=== PATIENT | male | born 1970 | race Caucasian/White ===

== ENCOUNTER 2017-06-28 17:19 | Emergency (ER) | payer BC ==
[2017-06-28 17:30] VITALS: BP 171/100
--- NOTE | 2017-06-28 18:28 | ER Document Report ---
ED Extremity Problem, Lower - General Chief Complaint: Knee Pain Stated Complaint: LEFT KNEE PAIN Time Seen by Provider: 06/28/17 17:42 Mode of Arrival: Wheelchair Information source: Patient Notes: 46-year-old male presents to ED for left knee pain since yesterday. He states he was playing with his dog and he twisted his knee in the yard. He states that with pain right away and then it eased up. Then he got up this morning and went to work. 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 He states it is now very painful to walk. States he has had one arthroscopic and one open knee surgery to the left knee and open surgery to the right knee for gout. He has also had vein stripping. TRAVEL OUTSIDE OF THE [place] IN LAST 30 DAYS: No - HPI Patient complains to provider of: Injury, Pain, Swelling Location: Knee - Left Occurred: Yesterday Where: Home, Outdoors Onset/Duration: Intermittent Quality of pain: Sharp, Throbbing Severity: Moderate Pain Level: 4 Context: Twisted Recent injury: Yes Associated symptoms: Painful ambulation Exacerbated by: Hanging down, Movement, Walking Relieved by: Elevation, Ice, Rest - Related Data Allergies/Adverse Reactions: No Known Allergies Allergy (Unverified 06/28/17 17:27) Past Medical History - General Information source: Patient - Social History Smoking Status: Current Every Day Smoker Cigarette use (# per day): Yes - One half pack a day Chew tobacco use (# tins/day): No Smoking Education Provided: Yes - Less than 2 minutes Frequency of alcohol use: None Drug Abuse: None 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 [employer] Lives with: Alone Family History: Arthritis, CAD, CVA, DM, Hyperlipidemia, Hypertension Patient has suicidal ideation: No Patient has homicidal ideation: No - Past Medical History Cardiac Medical History: Reports: Hx Hypertension Pulmonary Medical History: Reports: None EENT Medical History: Reports: None Neurological Medical History: Reports: Other - TBI with, 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 Endocrine Medical History: Reports: None Renal/ Medical History: Reports: Hx End Stage Renal Disease Malignancy Medical History: Reports None GI Medical History: Reports: None Musculoskeltal Medical History: Reports Hx Arthritis, Reports Hx Gout, Reports Hx Musculoskeletal Trauma Skin Medical History: Reports None Psychiatric Medical History: Reports: None Traumatic Medical History: Reports: Hx Fractures - Left arm and fingers, Hx Traumatic Brain Injury Infectious Medical History: Reports: None Past Surgical History: Reports: Hx Oral Surgery - Pain stripping and 1 pain removed wisdom teeth, Hx Orthopedic Surgery - Knee surgeries to left and right knee, Hx Vascular Surgery Review of Systems - Review of Systems Constitutional: No symptoms reported EENT: No symptoms reported Cardiovascular: No symptoms reported Respiratory: No symptoms reported Gastrointestinal: No symptoms reported Genitourinary: No symptoms reported Male Genitourinary: No symptoms reported Musculoskeletal: Joint pain - left knee pain and swelling Skin: No symptoms reported Hematologic/Lymphatic: No symptoms reported Neurological/Psychological: No symptoms reported -: Yes All other systems reviewed and negative Physical Exam - Vital signs Vitals: Temp Pulse Resp BP Pulse Ox 98.6 F 99 18 171/100 H 97 06/28/17 17:27 06/28/17 17:27 06/28/17 17:27 06/28/17 17:27 06/28/17 17:27 Interpretation: Normal - General General appearance: Appears well, Alert - HEENT Head: Normocephalic, Atraumatic Eyes: Normal Pupils: PERRL - Respiratory Respiratory status: No respiratory distress Chest status: Nontender Breath sounds: Normal Chest palpation: Normal - Cardiovascular Rhythm: Regular Heart sounds: Normal auscultation Murmur: No - Abdominal Inspection: Normal Distension: No distension Bowel sounds: Normal Tenderness: Nontender Organomegaly: No organomegaly - Back Back: Normal, Nontender - Extremities General upper extremity: Normal inspection, Nontender, Normal color, Normal ROM , Normal temperature General lower extremity: Normal color, Normal temperature. No: Jakub's sign Knee: Tender, Joint effusion, Pain with ROM, Patellar tendon intact, Tender joint line, Other - painfull ambulation increased swelling to the lateral aspect of the knee. No: Abrasion, Deformity, Dislocation, Drawer's test instability, Ecchymosis, Instability, Laceration, Laxity with valgus stress, Laxity with varus stress, Popliteal fossa tender - Neurological Neuro grossly intact: Yes Cognition: Normal Orientation: AAOx4 [place] Coma Scale Eye Opening: Spontaneous [place] Coma Scale Verbal: Oriented [place] Coma Scale Motor: Obeys Commands [place] Coma Scale Total: 15 Speech: Normal Motor strength normal: LUE, RUE, LLE, RLE Sensory: Normal - Psychological Associated symptoms: Normal affect, Normal mood - Skin Skin Temperature: Warm Skin Moisture: Dry Skin Color: Normal Course - Re-evaluation Re-evalutation: 06/28/17 19:[address] Lakhani for the x-ray results. Patient was examined by Dr. Lakhani. He recommended knee immobilizer pain medication prednisone crutches and patient to follow-up with his orthopedic surgeon. He states that MRI did not need to be done tonight but it does probably need to be done as an outpatient. - Vital Signs Vital signs: Temp Pulse Resp BP Pulse Ox 98.6 F 99 18 171/100 H 97 06/28/17 17:27 06/28/17 17:27 06/28/17 17:27 06/28/17 17:27 06/28/17 17:27 - Diagnostic Test Radiology reviewed: Image reviewed, Reports reviewed Procedures - Immobilization Left Knee Immobilizer type: Crutches, Knee immobilizer Performed by: Provider Post-Proc Neuro Vasc Exam: Normal Alignment checked and good: Yes Discharge - Discharge Clinical Impression: Left knee injury Qualifiers: Encounter type: initial encounter Qualified Code(s): S89.92XA - Unspecified injury of left lower leg, initial encounter Condition: Stable Disposition: HOME, SELF-CARE Additional Instructions: SUSPECTED INTERNAL KNEE INJURY: The examiner of your injured knee suspects an internal injury to the cartilage or internal ligaments. This must be further investigated by an mailing specialist. The knee should be protected, ice packed, and elevated while awaiting your follow-up exam by the orthopedist. If there is severe swelling, severe pain, or any new symptoms while awaiting your exam, you should call the orthopedist. (If he/she is unavailable, call us or return for re-examination.) KNEE IMMOBILIZING SPLINT: The knee immobilizing splint will protect the injury while healing begins. This type of splint does not allow the knee to bend at all. No running or sports will be possible. If the splint allows painfree walking, it's giving adequate protection. If there is still significant pain, crutches may be needed as well. Don't do anything that hurts. Adjusted the splint, if necessary. The stiffeners on the sides are attached with Velcro, so they can be easily moved to adjust for thigh and calf size. If you need help with these adjustments, come back. You will lose muscle strength in the thigh while using this splint. The doctor will advise you if it's safe to do isometric knee exercises while you use it. USE OF CRUTCHES: The doctor has recommended that you not bear weight at this time. You will need to use crutches. Adjust the crutches so the tops come to about two inches under the armpit while you are standing upright. Use your hands -- not your armpits -- to support your weight. To get into a chair, support yourself with one crutch on the injured side. Hold the chair with the other hand, then lower yourself while putting all your weight on the good leg. Going up stairs is `good leg up, step up, then bring up crutches and bad leg.' Down stairs is `bad leg and crutches down, then bring good leg down.' If you develop numbness or swelling in an arm or hand, you are using the crutches incorrectly. Return if you are having any problems with the crutches. ICE & ELEVATION: Apply ice packs frequently against the painful area. Many different schedules are recommended, such as "20 minutes on, 20 minutes off" or "one hour ice, two hours rest." If you need to work, you may need to go longer between ice treatments. You should plan to have the area ice packed AT LEAST one- fourth of the time. The ice should be applied over the wrap, tape, or splint, or over a layer of cloth -- not directly against the skin. Some ice bags have a built-in cloth and can be put directly on the skin. Your injured part should be elevated as much as possible over the next 48 hours. Try to keep the injury above the level of the heart. Avoid use of the injured area. Elevation and rest will decrease the swelling. STEROID MEDICATION: You have been given a medicine of the cortisone/steroid class. This medication is used to control inflammation or allergy. It is usually only given for a short period of time, until the acute process subsides. There are usually no side effects from short-term use of cortisone-like medications. Some persons feel an increased sense of well-being and are not sleepy at bedtime. Long-term use of cortisone medications is best avoided, unless required for a severe condition. If your condition does not remit, or relapses after the course of corticosteroid medication, you should consult your physician. Oral Narcotic Medication You have been given a prescription for pain control. This medication is a narcotic. It's best taken with food, as nausea can result if taken on an empty stomach. Don't operate machinery or drive within six hours of taking this medication. Do not combine this medicine with alcohol, or with any medication which can cause sedation (such as cold tablets or sleeping pills) unless you get permission from the physician. Narcotics tend to cause constipation. If possible, drink plenty of fluids and eat a diet high in fiber and fruits. FOLLOW-UP CARE: If you have been referred to a physician for follow-up care, call the physician s office for an appointment as you were instructed or within the next two days. If you experience worsening or a significant change in your symptoms, notify the physician immediately or return to the Emergency Department at any time for re-evaluation. Prescriptions: Prednisone [Sterapred Ds] 1 pkg PO ASDIR PRN 12 Days tab.ds.pk PRN Reason: Forms: Elevated Blood Pressure, Smoking Cessation Education, Return to Work Referrals: ROBERT FLORENTINO MD [ACTIVE STAFF] - Follow up as needed
--- NOTE | 2017-06-28 18:31 | RADIOLOGY REPORT (SQ) ---
EXAM DESCRIPTION: KNEE LEFT 4 VIEW COMPLETED DATE/TIME: 06/28/2017 6:12 pm REASON FOR STUDY: pain injury COMPARISON: None. NUMBER OF VIEWS: Four views. TECHNIQUE: AP, lateral, and both oblique radiographic images acquired of the left knee. LIMITATIONS: None. FINDINGS: MINERALIZATION: Osteopenia. BONES: No acute fracture or dislocation. No worrisome bone lesions. JOINT: There is narrowing of the lateral joint compartment with subchondral sclerosis. No marginal o steophytes are present. There is a significant joint effusion. SOFT TISSUES: No soft tissue swelling. No radio-opaque foreign body. OTHER: No other significant finding. IMPRESSION: Degenerative joint changes in the lateral compartment. There is a significant effusion. If there is concern for internal derangement, consider MRI. TECHNICAL DOCUMENTATION: JOB ID: [id number]- All Rights Reserved
[2017-06-28] MEDS ORDERED: HYDROCODONE/ACETAMINOPHEN 5-325 MG 6 TAB/DSPK PO PRN (19:27)
[2017-06-28] MEDS ORDERED: PREDNISONE 20 MG TABLET PO ONE (19:27)
== END 2017-06-28 19:40 | disposition home or self-care (01) ==
LOC: ER 17:19
DX: S89.92XA Unspecified injury of left lower leg, initial encounter (principal); M25.562 Pain in left knee; M25.462 Effusion, left knee; X50.1XXA Overexertion from prolonged static or awkward postures, initial encounter; Y93.K9 Activity, other involving animal care; Y92.007 Garden or yard of unspecified non-institutional (private) residence as the place of occurrence of the external cause; I10 Essential (primary) hypertension; F17.210 Nicotine dependence, cigarettes, uncomplicated; Z71.6 Tobacco abuse counseling; Z98.890 Other specified postprocedural states
CPT/HCPCS: 99283; 73562; L1830; J7512

== ENCOUNTER → 2019-02-05 | Outpatient (CLI) | payer OTHER ==
--- NOTE | 2019-02-05 16:21 | RADIOLOGY REPORT (SQ) ---
EXAM DESCRIPTION: U/S RETROPERITON (RENAL/AORTA) COMPLETED DATE/TIME: 02/05/2019 4:00 pm REASON FOR STUDY: N18.5 CHRONIC KIDNEY DISEASE, STAGE 5 N18.5 CHRONIC KIDNEY DISEASE, STAGE 5 COMPARISON: None. TECHNIQUE: Dynamic and static grayscale images acquired of the kidneys and bladder and recorded on P ACS. Additional selected color Doppler and spectral images recorded. LIMITATIONS: None. FINDINGS: RIGHT KIDNEY: The right kidney measures 9.7 cm in length. There is increased echogenici ty. No solid or suspicious masses. No hydronephrosis. No calcifications. LEFT KIDNEY: The left kidney measures 9.5 cm in length. The kidney is echogenic. No solid or cristina picious masses. No hydronephrosis. No calcifications. There is a 3.0 x 2.6 x 2.2 cm cyst. BLADDER: No masses. OTHER FINDINGS: No other significant finding. IMPRESSION: Echogenic kidneys consistent with medical renal disease. No hydronephrosis. TECHNICAL DOCUMENTATION: JOB ID: [id number] [employer]- All Rights Reserved Reading location - IP/workstation name: [email or web address]
== END ==
LOC: RAD 15:19
PROVIDERS: ATTEND Internal Medicine Nephrology
DX: N18.5 Chronic kidney disease, stage 5 (principal)
CPT/HCPCS: 76770

== ENCOUNTER → 2019-02-07 | Outpatient (CLI) | payer OTHER ==
[2019-02-07 10:56] LABS: APPEARANCE,URINE CLEAR; BILIRUBIN,URINE NEGATIVE (NEGATIVE); COLOR,URINE STRAW; GLUCOSE, URINE NEGATIVE (NEGATIVE); KETONES,URINE NEGATIVE (NEGATIVE); LEUKOCYTE ESTERASE,URINE NEGATIVE (NEGATIVE); NITRITE,URINE NEGATIVE (NEGATIVE); PROTEIN,URINE 30 mg/dL (NEGATIVE); UROBILINOGEN,URINE NEGATIVE mg/dL (<2.0)
[2019-02-07 11:08] LABS: ALBUMIN 3.6 g/dL (3.5-5.0); ANION GAP 13 (5-19); BLOOD UREA NITROGEN 81 mg/dL (7-20); CALCIUM 7.9 mg/dL (8.4-10.2); CARBON DIOXIDE 22 mmol/L (22-30); CHLORIDE 105 mmol/L (98-107); GLUCOSE 109 mg/dL (75-110); IRON(TIBC) 33.5 ug/dL (49-181); PHOSPHORUS 6.4 mg/dL (2.5-4.5); POTASSIUM 4.7 mmol/L (3.6-5.0); SODIUM 139.9 mmol/L (137-145); URIC ACID 9.3 mg/dL (3.5-8.5)
[2019-02-07 11:53] LABS: UR PRO/CREAT RATIO RESULT 0.7 mg/mg (0.0-0.2); URINE CREATININE 71.7 mg/dL (22-328); URINE PROTEIN 51.6 mg/dL (<12)
[2019-02-07 12:15] LABS: 24 HOUR URINE PROTEIN RESULT 916 mg/day (42-225)
[2019-02-07 12:20] LABS: URINE CREATININE 66.9 mg/dL (22-328)
[2019-02-07 12:21] LABS: CREATININE 5.82 mg/dL (0.52-1.25)
== END ==
LOC: OD 10:04
PROVIDERS: ATTEND Internal Medicine Nephrology
DX: I12.9 Hypertensive chronic kidney disease with stage 1 through stage 4 chronic kidney disease, or unspecified chronic kidney disease (principal); N18.3 Chronic kidney disease, stage 3 (moderate); E55.9 Vitamin D deficiency, unspecified
CPT/HCPCS: 36415; 80069; 81001; 82306; 82570; 82575; 82728; 83540; 83550; 83970; 84156; 84550

== ENCOUNTER 2019-02-11 09:10 | Emergency (ER) | payer OTHER ==
[2019-02-11 09:18] VITALS: BP 158/92
--- NOTE | 2019-02-11 10:04 | ER Document Report ---
ED Medical Screen (RME) - General Chief Complaint: Flank Pain Stated Complaint: FLANK PAIN Time Seen by Provider: 02/11/19 09:56 Primary Care Provider: NICK VAUGHN MD [Primary Care Provider] - Follow up as needed Mode of Arrival: Ambulatory Information source: Patient TRAVEL OUTSIDE OF THE [place] IN LAST 30 DAYS: No - HPI Patient complains to provider of: FLANK PAIN, NOT FEELING WELL Notes: 02/11/19 10:02 Patient here with complaints of not feeling well. The patient has a history of chronic kidney disease. Creatinine runs in the fives. He sees Dr. Vaughn. He is not currently on dialysis at this time. He still makes urine. States that this morning he woke up just not feeling well. He states that he feels nauseous, fatigued, somewhat confused, mildly short of breath and has been having some right flank pain. States this is not normal for him. No fever. No chest pain. Exam Nontoxic-appearing, no distress. Lungs clear and equal throughout. Heart sounds normal. Mild right-sided CVA tenderness to percussion. Plan CBC, CMP, troponin, urinalysis, EKG, chest x-ray, CT abdomen pelvis An initial examination was made on the patient as part of the triage process, and it was determined a more comprehensive evaluation was necessary. Initial labs were ordered and patient was transferred to another provider in the ED who assumed care and finished evaluation and plan. - Related Data Allergies/Adverse Reactions: No Known Allergies Allergy (Verified 02/11/19 09:10) Past Medical History - Past Medical History Cardiac Medical History: Reports: Hx Hypertension Renal/ Medical History: Reports: Hx End Stage Renal Disease. Denies: Hx Peritoneal Dialysis Musculoskeltal Medical History: Reports Hx Arthritis, Reports Hx Gout, Reports Hx Musculoskeletal Trauma Traumatic Medical History: Reports: Hx Fractures - Left arm and fingers, Hx Traumatic Brain Injury Past Surgical History: Reports: Hx Oral Surgery - Pain stripping and 1 pain removed wisdom teeth, Hx Orthopedic Surgery - Knee surgeries to left and right knee, Hx Vascular Surgery Physical Exam - Vital signs Vitals: Temp Pulse Resp BP Pulse Ox 98.1 F 95 16 158/92 H 96 02/11/19 09:16 02/11/19 09:16 02/11/19 09:16 02/11/19 09:16 02/11/19 09:16 Course - Vital Signs Vital signs: Temp Pulse Resp BP Pulse Ox 98.1 F 95 16 158/92 H 96 02/11/19 09:16 02/11/19 09:16 02/11/19 09:16 02/11/19 09:16 02/11/19 09:16 Doctor's Discharge - Discharge Referrals: NICK VAUGHN MD [Primary Care Provider] - Follow up as needed
[2019-02-11 10:34] LABS: ABSOLUTE BASOPHILS # (AUTO) 0.1 10^3/uL (0.0-0.2); ABSOLUTE EOSINOPHILS # (AUTO) 0.2 10^3/uL (0.0-0.6); ABSOLUTE LYMPHOCYTES (AUTO) 1.3 10^3/uL (0.5-4.7); ABSOLUTE MONOCYTES (AUTO) 0.7 10^3/uL (0.1-1.4); ABSOLUTE NEUT (AUTO) 7.4 10^3/uL (1.7-8.2); BASOPHILS % (AUTO) 0.9 % (0-2); EOSINOPHILS % (AUTO) 1.6 % (0-6); HEMATOCRIT 32.2 % (37.9-51.0); HEMOGLOBIN 10.9 g/dL (13.5-17.0); LYMPHOCYTES % (AUTO) 13.5 % (13-45); MEAN CORPUSCULAR HEMOGLOBIN 30.6 pg (27.0-33.4); MEAN CORPUSCULAR VOLUME 90 fl (80-97); MONOCYTES % (AUTO) 7.1 % (3-13); PLATELET COUNT 292 10^3/uL (150-450); RED BLOOD COUNT 3.58 10^6/uL (4.35-5.55); RED CELL DISTRIBUTION WIDTH 14.1 % (11.5-14.0); SEGMENTED NEUTROPHILS % (AUTO) 76.9 % (42-78); TOTAL CELLS COUNTED % (AUTO) 100 %; WHITE BLOOD COUNT 9.7 10^3/uL (4.0-10.5)
[2019-02-11 10:36] LABS: APPEARANCE,URINE SLIGHTLY-CLOUDY; BILIRUBIN,URINE NEGATIVE (NEGATIVE); COLOR,URINE YELLOW; GLUCOSE, URINE NEGATIVE (NEGATIVE); KETONES,URINE NEGATIVE (NEGATIVE); LEUKOCYTE ESTERASE,URINE NEGATIVE (NEGATIVE); NITRITE,URINE NEGATIVE (NEGATIVE); PROTEIN,URINE 30 mg/dL (NEGATIVE); UROBILINOGEN,URINE NEGATIVE mg/dL (<2.0)
[2019-02-11 11:01] LABS: ALANINE AMINOTRANSFERASE 22 U/L (21-72); ALBUMIN 4.2 g/dL (3.5-5.0); ALKALINE PHOSPHATASE 83 U/L (38-126); ANION GAP 16 (5-19); ASPARTATE AMINO TRANSFERASE 15 U/L (17-59); BILIRUBIN,DIRECT 0.4 mg/dL (0.0-0.4); BILIRUBIN,TOTAL 0.4 mg/dL (0.2-1.3); BLOOD UREA NITROGEN 88 mg/dL (7-20); CALCIUM 8.6 mg/dL (8.4-10.2); CARBON DIOXIDE 19 mmol/L (22-30); CHLORIDE 106 mmol/L (98-107); GLUCOSE 94 mg/dL (75-110); POTASSIUM 5.3 mmol/L (3.6-5.0); SODIUM 141.2 mmol/L (137-145)
--- NOTE | 2019-02-11 11:19 | RADIOLOGY REPORT (SQ) ---
EXAM DESCRIPTION: CHEST 2 VIEWS COMPLETED DATE/TIME: 02/11/2019 11:09 am REASON FOR STUDY: SOB COMPARISON: None. EXAM PARAMETERS: NUMBER OF VIEWS: two views TECHNIQUE: Digital Frontal and Lateral radiographic views of the chest acquired. RADIATION DOSE: NA LIMITATIONS: none FINDINGS: LUNGS AND PLEURA: No opacities, masses or pneumothorax. No pleural effusion. MEDIASTINUM AND HILAR STRUCTURES: No masses or contour abnormalities. HEART AND VASCULAR STRUCTURES: Heart normal size. No evidence for failure. BONES: No acute findings. HARDWARE: None in the chest. OTHER: No other significant finding. IMPRESSION: No acute abnormality of the lungs. TECHNICAL DOCUMENTATION: JOB ID: [id number] [employer]- All Rights Reserved Reading location - IP/workstation name: [email or web address]
--- NOTE | 2019-02-11 11:22 | RADIOLOGY REPORT (SQ) ---
EXAM DESCRIPTION: CT ABD/PELVIS NO ORAL OR IV COMPLETED DATE/TIME: 02/11/2019 11:02 am REASON FOR STUDY: RIGHT FLANK PAIN COMPARISON: None. TECHNIQUE: CT scan of the abdomen and pelvis performed without intravenous or oral contrast. Images reviewed with lung, soft tissue, and bone windows. Reconstructed coronal and sagittal MPR images revi ewed. All images stored on PACS. All CT scanners at this facility use dose modulation, iterative reconstruction, and/or weight based d osing when appropriate to reduce radiation dose to as low as reasonably achievable (ALARA). [facility]: Dose Right [facility]: CareDose [facility]: Dose Right [facility]: Teradose 4D [facility]: Smart Anywhere to Go RADIATION DOSE: CT Rad equipment meets quality standard of care and radiation dose reduction techniq ues were employed. CTDIvol: 11.6 mGy. DLP: 642 mGy-cm.mGy. LIMITATIONS: None. FINDINGS: LOWER CHEST: No significant findings. No nodules or infiltrates. NON-CONTRASTED LIVER, SPLEEN, ADRENALS: 1 cm left adrenal adenoma. Liver unremarkable. Small splenu le PANCREAS: No masses. No peripancreatic inflammatory changes. GALLBLADDER: No identified stones by CT criteria. No inflammatory changes to suggest cholecystitis. RIGHT KIDNEY AND URETER: No suspicious masses. Assessment limited by lack of IV contrast. No signif icant calcifications. No hydronephrosis or hydroureter. LEFT KIDNEY AND URETER: No suspicious masses. Assessment limited by lack of IV contrast. No signifi cant calcifications. No hydronephrosis or hydroureter. Benign cystic change AORTA AND RETROPERITONEUM: No aneurysm. No retroperitoneal masses or adenopathy. BOWEL AND PERITONEAL CAVITY: No obvious masses or inflammatory changes. No free fluid. Large quantit y fecal material rectosigmoid. APPENDIX: Normal. PELVIS, BLADDER, AND ABDOMINAL WALL:No abnormal masses. No free fluid. Bladder normal. BONES: Scoliosis with associated multilevel disc degeneration and hypertrophic spurring. OTHER: No other significant finding. IMPRESSION: No abnormality to explain the history right flank pain. Incidental findings of small le ft adrenal adenoma. Benign cystic change left kidney. Large quantity fecal material rectosigmoid. Scoliosis with associated multilevel disc degeneration and hypertrophic spurring. COMMENT: Quality ID # [id number]: Final reports with documentation of one or more dose reduction techniques (e.g., Automated exposure control, adjustment of the mA and/or kV according to patient size, use of iterative reconstruction technique) TECHNICAL DOCUMENTATION: JOB ID: [id number] [employer]- All Rights Reserved Reading location - IP/workstation name: [email or web address]
--- NOTE | 2019-02-11 12:36 | EKG REPORT ---
SEVERITY:- NORMAL ECG - SINUS RHYTHM : Confirmed by: Matty Schwarz MD 11-Feb-2019 12:35:10
[2019-02-11] MEDS ORDERED: ASPIRIN 81 MG TABLET, CHEWABLE PO ONE (13:43)
[2019-02-11] MEDS ORDERED: CALCIUM GLUCONATE 1000 MG/10 ML INJ IV ONE (14:30)
--- NOTE | 2019-02-11 14:33 | ER Document Report ---
ED General - General Chief Complaint: Flank Pain Stated Complaint: FLANK PAIN Time Seen by Provider: 02/11/19 09:56 Primary Care Provider: NICK VAUGHN MD [Primary Care Provider] - Follow up as needed Mode of Arrival: Ambulatory TRAVEL OUTSIDE OF THE [place] IN LAST 30 DAYS: No - HPI Notes: 48-year-old male age by chronic kidney disease presents to the ED for evaluation of right sided flank pain that comes intermittently, reports some dizziness, sl ight confusion that started approximately 5:00am. Patient was just told by Dr. Vaughn yesterday that he is stage V renal disease and will need dialysis within the next week or the next couple months. Patient states his creatinines usually run in the fives, his father did also have chronic renal disease and required a renal transplant. Denies any chest pain shortness of breath nausea vomiting or diarrhea, denies any dysuria. Denies any illicit drug use. Denies fevers, chills, chest pain,palpitations, shortness of breath, dyspnea, nausea, vomiting, diarrhea, abdominal pain, hematuria,blurred vision, double vision, loss of vision, speech changes, LH, dizziness, syncope, headaches, wheezing, ST, URI, neck pain, weakness, bowel or bladder dysfunction, saddle anesthesia, numbness or tingling in bilateral upper or lower extremities equally, muscle paralysis, weakness in bilateral upper or lower extremities equally or rash. - Related Data Allergies/Adverse Reactions: No Known Allergies Allergy (Verified 02/11/19 09:10) Past Medical History - General Information source: Patient, Relative - Social History Smoking Status: Current Every Day Smoker Chew tobacco use (# tins/day): No Frequency of alcohol use: Rare Drug Abuse: None Family History: Arthritis, CAD, CVA, DM, Hyperlipidemia, Hypertension Patient has suicidal ideation: No Patient has homicidal ideation: No - Past Medical History Cardiac Medical History: Reports: Hx Hypertension Renal/ Medical History: Reports: Hx End Stage Renal Disease. Denies: Hx P eritoneal Dialysis Musculoskeletal Medical History: Reports Hx Arthritis, Reports Hx Gout, Reports Hx Musculoskeletal Trauma Traumatic Medical History: Reports: Hx Fractures - Left arm and fingers, Hx Traumatic Brain Injury Past Surgical History: Reports: Hx Oral Surgery - Pain stripping and 1 pain removed wisdom teeth, Hx Orthopedic Surgery - Knee surgeries to left and right knee, Hx Vascular Surgery Review of Systems - Review of Systems Constitutional: See HPI EENT: No symptoms reported Cardiovascular: No symptoms reported Respiratory: No symptoms reported Gastrointestinal: See HPI Genitourinary: No symptoms reported Male Genitourinary: No symptoms reported Musculoskeletal: No symptoms reported Skin: No symptoms reported Hematologic/Lymphatic: No symptoms reported Neurological/Psychological: No symptoms reported Physical Exam - Vital signs Vitals: Temp Pulse Resp BP Pulse Ox 98.1 F 95 16 158/92 H 96 02/11/19 09:16 02/11/19 09:16 02/11/19 09:16 02/11/19 09:16 02/11/19 09:16 - Notes Notes: PHYSICAL EXAMINATION: GENERAL: Well-appearing, well-nourished and in no acute distress. HEAD: Atraumatic, normocephalic. EYES: Pupils equal round and reactive to light, extraocular movements intact, sclera anicteric, conjunctiva are normal. ENT: Nares patent, oropharynx clear without exudates. Moist mucous membranes. NECK: Normal range of motion, supple without lymphadenopathy LUNGS: Breath sounds clear to auscultation bilaterally and equal. No wheezes rales or rhonchi. HEART: Regular rate and rhythm without murmurs ABDOMEN: Soft, nontender, nondistended abdomen. No guarding, no rebound. No masses appreciated. Musculoskeletal: Normal range of motion, no pitting or edema. No cyanosis. NEUROLOGICAL: Cranial nerves grossly intact. Normal speech, normal gait. Normal sensory, motor exams PSYCH: Normal mood, normal affect. SKIN: Warm, Dry, normal turgor, no rashes or lesions noted. Course - Re-evaluation Re-evalutation: 1-year-old male afebrile vitals stable for evaluation of right flank pain, CBC with anemia, no leukocytosis, creatinine is 5.66 with BUN 88, potassium is 5.3. Patient was seen by Dr. Vaughn yesterday, patient has had these creatinines for the last couple of years. Previous to being seen by Dr. Vaughn patient was seen in [place] by a direct support worker, Dr. Toussaint, he states his been progressively getting elevated creatinines, family history of chronic renal disease, father had a renal transplant [place] at age 50. Patient recently had a stress echo done approximately 1 week ago, which was negative, patient is seen by Rufina Gallo neck is the primary provider. CT abdomen pelvis without contrast show that patient has large stool on rectosigmoid, left adrenal adenoma, no other acute findings. Chest x-ray was normal, initial troponin was negative. Consulted with Dr. Wills, direct support worker on-call at [phone], consulted regarding pertinent laboratory diagnostic and clinical findings, Dr. Wills to review chart since patient has been seen at that practice as he is a colleague of Dr. Vaughn's, stated that patient does not require any hospitalization due to chronic renal failure, states usually creatinines take 8-9 prior to dialysis being initiated, after reviewing his chart does not feel that patient needs to be admitted for nephrology purposes. Unable to discuss with patient the risks and benefits of leaving AGAINST MEDICAL ADVICE such risk of , permanent or temporary disability or possibly . - Vital Signs Vital signs: Temp Pulse Resp BP Pulse Ox 98.1 F 95 16 158/92 H 96 02/11/19 09:16 02/11/19 09:16 02/11/19 09:16 02/11/19 09:16 02/11/19 09:16 - Laboratory Result Diagrams: 02/11/19 10:20 02/11/19 10:20 Laboratory results interpreted by me: 02/11/19 02/11/19 02/11/19 10:20 10:20 10:20 RBC 3.58 L Hgb 10.9 L Hct 32.2 L RDW 14.1 H Potassium 5.3 H Carbon Dioxide 19 L BUN 88 H Creatinine 5.66 H Est GFR ( Amer) 13 L Est GFR (Non-Af Amer) 11 L AST 15 L Urine Protein 30 H Discharge - Discharge Clinical Impression: Hyperkalemia Condition: Fair Disposition: ELOPED Referrals: NICK VAUGHN MD [Primary Care Provider] - Follow up as needed
--- NOTE | 2019-02-11 14:41 | RADIOLOGY REPORT (SQ) ---
EXAM DESCRIPTION: CT HEAD WITHOUT COMPLETED DATE/TIME: 02/11/2019 2:01 pm REASON FOR STUDY: AMS COMPARISON: None. TECHNIQUE: Axial images acquired through the brain without intravenous contrast. Images reviewed wi th bone, brain and subdural windows. Additional sagittal and coronal reconstructions were generated. Images stored on PACS. All CT scanners at this facility use dose modulation, iterative reconstruction, and/or weight based d osing when appropriate to reduce radiation dose to as low as reasonably achievable (ALARA). [facility]: Dose Right [facility]: CareDose [facility]: Dose Right [facility]: Teradose 4D [facility]: [employer] RADIATION DOSE: 53 mGy. LIMITATIONS: None. FINDINGS: VENTRICLES: Normal size and contour. CEREBRUM: No masses. No hemorrhage. No midline shift. No evidence for acute infarction. Normal gra y/white matter differentiation. No areas of low density in the white matter. CEREBELLUM: No masses. No hemorrhage. No alteration of density. No evidence for acute infarction. EXTRAAXIAL SPACES: No fluid collections. No masses. ORBITS AND GLOBE: No intra- or extraconal masses. Normal contour of globe without masses. CALVARIUM: No fracture. PARANASAL SINUSES: Opacified right maxillary sinus with mucous or serous retention cyst. SOFT TISSUES: No mass or hematoma. OTHER: No other significant finding. IMPRESSION: NORMAL BRAIN CT WITHOUT CONTRAST. EVIDENCE OF ACUTE STROKE: NO. COMMENT: Quality ID # [id number]: Final reports with documentation of one or more dose reduction techniques (e.g., Automated exposure control, adjustment of the mA and/or kV according to patient size, use of iterative reconstruction technique) TECHNICAL DOCUMENTATION: JOB ID: [id number] [employer]- All Rights Reserved Reading location - IP/workstation name: [email or web address]
== END 2019-02-11 14:48 | disposition left against medical advice (07) ==
LOC: ER 09:10
DX: E87.5 Hyperkalemia (principal); R10.9 Unspecified abdominal pain; R42 Dizziness and giddiness; F17.200 Nicotine dependence, unspecified, uncomplicated; I12.0 Hypertensive chronic kidney disease with stage 5 chronic kidney disease or end stage renal disease; N18.6 End stage renal disease
CPT/HCPCS: 36415; 70450; 71046; 74176; 80053; 81001; 84484; 85025; 93005; 93010; 99281

== ENCOUNTER → 2019-03-04 | Outpatient (CLI) | payer OTHER ==
[2019-03-04 16:25] LABS: ABSOLUTE BASOPHILS # (AUTO) 0.1 10^3/uL (0.0-0.2); ABSOLUTE EOSINOPHILS # (AUTO) 0.2 10^3/uL (0.0-0.6); ABSOLUTE LYMPHOCYTES (AUTO) 1.5 10^3/uL (0.5-4.7); ABSOLUTE MONOCYTES (AUTO) 0.7 10^3/uL (0.1-1.4); ABSOLUTE NEUT (AUTO) 7.1 10^3/uL (1.7-8.2); BASOPHILS % (AUTO) 0.7 % (0-2); EOSINOPHILS % (AUTO) 2.2 % (0-6); HEMATOCRIT 29.7 % (37.9-51.0); MEAN CORPUSCULAR HEMOGLOBIN 29.9 pg (27.0-33.4); MEAN CORPUSCULAR HGB CONC 33.5 g/dL (32.0-36.0); MEAN CORPUSCULAR VOLUME 89 fl (80-97); PLATELET COUNT 296 10^3/uL (150-450); RED BLOOD COUNT 3.33 10^6/uL (4.35-5.55); RED CELL DISTRIBUTION WIDTH 14.5 % (11.5-14.0); SEGMENTED NEUTROPHILS % (AUTO) 74.1 % (42-78); TOTAL CELLS COUNTED % (AUTO) 100 %; WHITE BLOOD COUNT 9.6 10^3/uL (4.0-10.5)
[2019-03-04 16:47] LABS: ALBUMIN 4.3 g/dL (3.5-5.0); ANION GAP 16 (5-19); BLOOD UREA NITROGEN 85 mg/dL (7-20); CALCIUM 9.1 mg/dL (8.4-10.2); CARBON DIOXIDE 18 mmol/L (22-30); CHLORIDE 107 mmol/L (98-107); GLUCOSE 80 mg/dL (75-110); IRON(TIBC) 44.4 ug/dL (49-181); PHOSPHORUS 8.3 mg/dL (2.5-4.5); POTASSIUM 5.4 mmol/L (3.6-5.0); SODIUM 140.7 mmol/L (137-145); URIC ACID 7.3 mg/dL (3.5-8.5)
[2019-03-04 16:50] LABS: UR PRO/CREAT RATIO RESULT 0.4 mg/mg (0.0-0.2); URINE CREATININE 124.2 mg/dL (22-328); URINE PROTEIN 44.5 mg/dL (<12)
== END ==
LOC: OD 15:50
PROVIDERS: ATTEND Internal Medicine Nephrology
DX: I12.0 Hypertensive chronic kidney disease with stage 5 chronic kidney disease or end stage renal disease (principal); N18.5 Chronic kidney disease, stage 5; N25.81 Secondary hyperparathyroidism of renal origin; E87.5 Hyperkalemia
CPT/HCPCS: 36415; 80069; 82306; 82570; 82728; 83540; 83550; 83970; 84156; 84550; 85025

== ENCOUNTER → 2019-03-12 | Outpatient (CLI) | payer OTHER ==
[2019-03-12 18:50] LABS: ANION GAP 18 (5-19); BLOOD UREA NITROGEN 76 mg/dL (7-20); CALCIUM 8.8 mg/dL (8.4-10.2); CARBON DIOXIDE 20 mmol/L (22-30); CHLORIDE 106 mmol/L (98-107); GLUCOSE 79 mg/dL (75-110); POTASSIUM 4.8 mmol/L (3.6-5.0); SODIUM 143.7 mmol/L (137-145)
[2019-03-14 07:39] LABS: HEPATITIS C VIRUS AB <0.1 s/co ratio (0.0-0.9); HEPATITS B SURFACE ANTIGEN Negative (Negative)
[2019-03-14 17:36] LABS: HEPATITIS B CORE AB TOT Negative (Negative); HEPATITIS B SURFACE AB QUANT 201.5 mIU/mL (Immunity>9)
== END ==
LOC: OD 16:40
PROVIDERS: ATTEND Internal Medicine Nephrology
DX: Z11.59 Encounter for screening for other viral diseases (principal); N18.5 Chronic kidney disease, stage 5
CPT/HCPCS: 36415; 80048; 86317; 86704; 86803; 86804; 87340

== ENCOUNTER 2019-03-23 07:20 | Day surgery (SDC) | payer OTHER ==
[~2019-03-23 07:20] MED LIST: CEFAZOLIN 1 GM/D5W RTU 1 GM/50 ML RTUPB IV SCH; DEXTROSE 5%-1/2 NORMAL SALINE 1,000 ML IV PRN; DIAZEPAM 5 MG TABLET PO PRN; OXYCODONE-ACETAMINOPHEN 5-325 MG TABLET PO PRN
[2019-03-23] MEDS ORDERED: DIAZEPAM 5 MG TABLET ONE (07:52)
[2019-03-23] MEDS ORDERED: OXYCODONE-ACETAMINOPHEN 5-325 MG TABLET ONE (07:52)
[2019-03-23] MEDS ORDERED: CEFAZOLIN 1 GM/D5W RTU 1 GM/50 ML RTUPB IV ONE (07:52)
[2019-03-23 08:12] LABS: HEMATOCRIT 29.5 % (37.9-51.0); MEAN CORPUSCULAR HEMOGLOBIN 30.6 pg (27.0-33.4); MEAN CORPUSCULAR HGB CONC 33.8 g/dL (32.0-36.0); MEAN CORPUSCULAR VOLUME 90 fl (80-97); PLATELET COUNT 245 10^3/uL (150-450); RED BLOOD COUNT 3.27 10^6/uL (4.35-5.55); RED CELL DISTRIBUTION WIDTH 16.1 % (11.5-14.0); WHITE BLOOD COUNT 6.9 10^3/uL (4.0-10.5)
[2019-03-23 08:24] LABS: ANION GAP 13 (5-19); BLOOD UREA NITROGEN 75 mg/dL (7-20); CALCIUM 8.5 mg/dL (8.4-10.2); CARBON DIOXIDE 19 mmol/L (22-30); CHLORIDE 111 mmol/L (98-107); GLUCOSE 104 mg/dL (75-110); POTASSIUM 4.8 mmol/L (3.6-5.0); SODIUM 143.4 mmol/L (137-145)
--- NOTE | 2019-03-23 08:33 | RADIOLOGY REPORT (SQ) ---
EXAM DESCRIPTION: CHEST SINGLE VIEW COMPLETED DATE/TIME: 03/23/2019 7:53 am REASON FOR STUDY: surgery COMPARISON: 02/11/2019. EXAM PARAMETERS: NUMBER OF VIEWS: One view. TECHNIQUE: Single frontal radiographic view of the chest acquired. RADIATION DOSE: NA LIMITATIONS: None. FINDINGS: LUNGS AND PLEURA: No opacities, masses or pneumothorax. No pleural effusion. MEDIASTINUM AND HILAR STRUCTURES: No masses. Contour normal. HEART AND VASCULAR STRUCTURES: Heart normal in size. Normal vasculature. BONES: No acute findings. HARDWARE: None in the chest. OTHER: No other significant finding. IMPRESSION: NO ACUTE RADIOGRAPHIC FINDING IN THE CHEST. TECHNICAL DOCUMENTATION: JOB ID: [id number] [employer]- All Rights Reserved Reading location - IP/workstation name: [email or web address]
[2019-03-23] MEDS ORDERED: BACITRACIN INJ 50,000 UNIT VIAL ONE (09:46)
[2019-03-23] MEDS ORDERED: LIDOCAINE 0.5% INJ-PF (5 MG/ML) 50 ML SDV ONE (09:46)
[2019-03-23] MEDS ORDERED: FENTANYL CITRATE INJ/PF 100 MCG/2 ML AMPUL ONE (09:54)
[2019-03-23] MEDS ORDERED: MIDAZOLAM 2 MG/2 ML INJ ONE (09:54)
--- NOTE | 2019-03-23 10:45 | Discharge Summary ---
Discharge Summary (SDC) - Discharge Final Diagnosis: #1 end-stage renal disease on hemodialysis Date of Surgery: 03/23/19 Discharge Date: 03/23/19 Condition: Fair Treatment or Instructions: Discharge home [after recovery per ASU criteria]. Diet , [renal],as tolerated, when fully awake advance as tolerated. Activities within moderation encouraged. Follow up in my office by appointment in about [1 week]. Call for appointment. Leave wounds [covered], [keep clean and dry, until office visit in 1 week]. Hold of on school/work [until evaluation in office]. Meds per med rec. May shower [in 48 hrs], [try to keep operated area as dry as possible]. Referrals: BRIT ALLEN PA-C [Primary Care Provider] - Discharge Diet: Other (Comments) - Renal. Respiratory Treatments at Home: Deep Breathing/Coughing Discharge Activity: Activity As Tolerated Report the Following to Your Physician Immediately: Shortness of Breath
--- NOTE | 2019-03-23 10:48 | Operative Report ---
Operative Report DATE OF SURGERY: 03/23/19 PREOPERATIVE DIAGNOSIS: #1 end-stage renal disease on hemodialysis POSTOPERATIVE DIAGNOSIS: #1 end-stage renal disease on hemodialysis OPERATION: 1. Ultrasound evaluation of the right internal jugular vein. 2. Insertion of PermCath via ultrasound guidance in the right internal jugular vein. 3. Angiogram and interpretation. SURGEON: DELVIN SEALS STACK ATTENDANT: None. ANESTHESIA: Moderate Sedation TISSUE REMOVED OR ALTERED: Not applicable. COMPLICATIONS: None. ESTIMATED BLOOD LOSS: 5 mL liters. INTRAOPERATIVE FINDINGS: Of a satisfactory right internal jugular vein about one-point centimeters in diameter. Satisfactory position with the tip of the cath that down in the right atrial pool. Easy egress of blood and ingress of heparinized solution through both ports. Postprocedure x-ray showed no untoward findings. PROCEDURE: After obtaining informed consent, the patient was taken to the [[facility]] and positioned supine. The [right neck] and chest were prepared with chlorhexidine and draped out with sterile linen. After the " universal timeout", in which it was verified that the patient continued to receive antibiotic, the procedure commenced. A steriley sheathed ultrasound probe was used to evaluate the [right internal jugular] vein. Local anesthesia was infiltrated adjacent to the probe. Access into the [right internal jugular] vein was obtained using a micropuncture needle, followed by micropuncture wire and then a micropuncture catheter. This was followed by introduction of a 0.035 guidewire the tip of which was placed down into the inferior vena cava . A 28 cm long permacatheter was now positioned over the chest and an exit site marked and locally anesthetized ,the catheter was placed between the 2 incisions. Proximally, the catheter was now positioned using a peel-away sheath, after dilation. Easy ingress of heparinized solution and egress of blood obtained through both ports. A completion angiogram was done by injecting contrast. The findings were as dictated. The neck incision was now closed using interrupted 3-0 PDS to the subcutaneous tissues, the catheter was anchored at the exit site using 3-0 PDS. A Biopatch device was now placed adjacent to the catheter. Dressings were applied and the procedure concluded. Exposure time: [0.2 minutes]. Exposure: 7.28 Lina london Contrast amount: [5 mL] of Lugglt-U-920 low osmolality. Copies of the dictated operative report for Dr. Delvin De Luna MD.concluded. Copies of the dictated operative report for Dr. Delvin De Luna MD.
[2019-03-23 11:37] VITALS: BP 129/97
--- NOTE | 2019-03-23 12:17 | RADIOLOGY REPORT (SQ) ---
EXAM DESCRIPTION: TUNNELED CENTRAL LINE COMPLETED DATE/TIME: 03/23/2019 10:38 am REASON FOR STUDY: N19 ESRD N19 UNSPECIFIED KIDNEY FAILURE COMPARISON: None. FLUOROSCOPY TIME: 0.2 minutes 40 images saved to PACS. TECHNIQUE: Intra-operative images acquired during surgical procedure to evaluate progress. NUMBER OF IMAGES: 40 LIMITATIONS: None. FINDINGS: Selected images from right side central line placement. Tip overlies SVC. IMPRESSION: IMAGE(S) OBTAINED DURING PROCEDURE. COMMENT: Quality ID [id number]: Final reports for procedures using fluoroscopy that document radiation exp osure indices, or exposure time and number of fluorographic images (if radiation exposure indices are not available) Please consult full operative report of the attending physician for description of the procedure. TECHNICAL DOCUMENTATION: JOB ID: [id number] [employer]- All Rights Reserved Reading location - IP/workstation name: [email or web address]
== END 2019-03-23 11:39 | disposition home or self-care (01) ==
LOC: CCL 07:20
PROVIDERS: ATTEND Surgery
DX: I12.0 Hypertensive chronic kidney disease with stage 5 chronic kidney disease or end stage renal disease (principal); N18.6 End stage renal disease; D64.9 Anemia, unspecified; F17.210 Nicotine dependence, cigarettes, uncomplicated; Z79.899 Other long term (current) drug therapy; Z01.818 Encounter for other preprocedural examination
CPT/HCPCS: 36561; 36415; 85027; 80048; 36558; 71045; 76937; 77001; C1752; Q9967; J2250; J3490 ×2; J0690; J3010; J1644

== ENCOUNTER 2019-04-14 05:18 | Day surgery (SDC) | payer OTHER ==
[2019-04-09 10:20] LABS: HEMATOCRIT 32.3 % (37.9-51.0); HEMOGLOBIN 10.6 g/dL (13.5-17.0); MEAN CORPUSCULAR HEMOGLOBIN 30.2 pg (27.0-33.4); MEAN CORPUSCULAR HGB CONC 32.9 g/dL (32.0-36.0); MEAN CORPUSCULAR VOLUME 92 fl (80-97); PLATELET COUNT 236 10^3/uL (150-450); RED BLOOD COUNT 3.52 10^6/uL (4.35-5.55); RED CELL DISTRIBUTION WIDTH 15.8 % (11.5-14.0); WHITE BLOOD COUNT 6.8 10^3/uL (4.0-10.5)
[2019-04-09 10:40] LABS: ANION GAP 10 (5-19); BLOOD UREA NITROGEN 36 mg/dL (7-20); CALCIUM 9.4 mg/dL (8.4-10.2); CARBON DIOXIDE 30 mmol/L (22-30); CHLORIDE 101 mmol/L (98-107); GLUCOSE 90 mg/dL (75-110); POTASSIUM 4.7 mmol/L (3.6-5.0); SODIUM 141.4 mmol/L (137-145)
[2019-04-14] MEDS ORDERED: VANCOMYCIN HCL INJ 500 MG VIAL ONE (05:29)
[2019-04-14] MEDS ORDERED: ALBUTEROL SULFATE 0.083% NEB 2.5 MG/3 ML AMPUL NEB ONE (06:32)
[2019-04-14] MEDS ORDERED: FENTANYL CITRATE INJ/PF 100 MCG/2 ML AMPUL ONE (06:43)
[2019-04-14] MEDS ORDERED: PROPOFOL INJ 200 MG/20 ML VIAL IV ONE ×2 (06:43→08:40)
[2019-04-14] MEDS ORDERED: MIDAZOLAM 2 MG/2 ML INJ ONE ×2 (06:43→08:40)
[2019-04-14] MEDS ORDERED: LIDOCAINE 0.5% INJ-PF (5 MG/ML) 50 ML SDV ONE (07:19)
[2019-04-14] MEDS ORDERED: HEPARIN SOD (PORCINE) 1,000 UNIT/ML 10 ML VIAL ONE (07:19)
[2019-04-14] MEDS ORDERED: LIDOCAINE 1% INJ-PF (10 MG/ML) 30 ML SDV ONE (07:19)
[2019-04-14] MEDS ORDERED: BACITRACIN INJ 50,000 UNIT VIAL ONE (07:19)
[2019-04-14] MEDS ORDERED: BUPIVACAINE HCL 0.25 % INJ/PF (2.5 MG/1 ML) 30 ML VIAL ONE (07:19)
[2019-04-14] MEDS ORDERED: DIPHENHYDRAMINE HCL 50 MG/ML VIAL IV PRN (08:57)
[2019-04-14] MEDS ORDERED: OXYCODONE-ACETAMINOPHEN 5-325 MG TABLET PO PRN ×3 (08:57→10:29)
[2019-04-14] MEDS ORDERED: MEPERIDINE HCL/PF INJ 25 MG/1 ML DISP.SYRIN IV PRN (08:57)
[2019-04-14] MEDS ORDERED: FENTANYL CITRATE INJ/PF 100 MCG/2 ML AMPUL IV PRN ×3 (08:57)
[2019-04-14] MEDS ORDERED: PROMETHAZINE HCL INJ 25 MG/1 ML VIAL IV PRN ×2 (08:57)
--- NOTE | 2019-04-14 09:38 | Discharge Summary ---
Discharge Summary (SDC) - Discharge Final Diagnosis: #[address] 2. End-stage renal disease on dialysis. 3 hypertension. Date of Surgery: 04/14/19 Discharge Date: 04/14/19 Condition: Fair Treatment or Instructions: Discharge home [after recovery per ASU criteria]. Diet , [renal],as tolerated, when fully awake advance as tolerated. Activities within moderation encouraged. Follow up in my office by appointment in about [1 week]. Call for appointment. Leave wounds [covered], [keep clean and dry, until office visit in 1 week]. Hold of on school/work [until evaluation in office]. Meds per med rec. Percocet. May shower [in 48 hrs], [try to keep operated area as dry as possible]. Prescriptions: Oxycodone HCl/Acetaminophen [Percocet 5-325 mg Tablet] 1 tab PO ASDIR PRN #15 tab PRN Reason: Referrals: BRIT ALLEN PA-C [Primary Care Provider] - Discharge Diet: Other (Comments) - Renal. Respiratory Treatments at Home: Deep Breathing/Coughing Discharge Activity: Activity As Tolerated Report the Following to Your Physician Immediately: Shortness of Breath, Unusual Bleeding
--- NOTE | 2019-04-14 09:42 | Operative Report ---
Operative Report DATE OF SURGERY: 04/14/19 PREOPERATIVE DIAGNOSIS: #[address] 2. End-stage renal disease on d ialysis. 3 hypertension. POSTOPERATIVE DIAGNOSIS: #[address] 2. End-stage renal disease on dialysis. 3 hypertension. OPERATION: Insertion of right transposed radiocephalic arteriovenous fistula. SURGEON: DELVIN SEALS ENVIRONMENTAL STUDIES PROFESSOR: None. ANESTHESIA: LMAC TISSUE REMOVED OR ALTERED: Not applicable. COMPLICATIONS: None. ESTIMATED BLOOD LOSS: 2 mL. INTRAOPERATIVE FINDINGS: Of a satisfactory vein and artery. Satisfactory anastomosis with appropriate auscultated bruit at the end of the procedure. PROCEDURE: Operative Report PROCEDURE: After reviewing the procedure with the patient, he was taken to the operating room. The patient was sedated and the right upper extremity] prepared with chlorhexidine and draped out with sterile linen. After the "" universal timeout", in which it was verified that the patient [received IV antibiotics] the procedure commenced. The sterilely sheathed ultrasound probe was used to evaluate the right venous and arterial systems, pertinent to the previously done vein mapping. Local anesthesia was infiltrated and a longitudinal incision made over the mid forearm, over the most distal reasonable looking radial artery. Dissection proceeded through the subcutaneous tissues down to the radial artery. This was dissected out proximally and distally for about 2 cm. . Rubber loops were placed on either end. The cephalic vein was now dissected out for a distance of about 6 cm. The patient was given 2500 units of heparin intravenously. The cephalic vein was transected and irrigated with heparinized solution. The distal branches were clipped Coronary dilators were accepted [up to 3.5 mm]. The artery was controlled proximally and distally with rubber loops. The vein was transposed into the arterial incision using a tendon passer. An arteriotomy approximately 1.2 cm in length was made, the artery was irrigated proximally and distally with heparinized solution. The transected vein was now spatulated [using a convenient branch, the so called branch patch technique, it was then anastomosed end to end to side into the brachial artery. This was done using a continuous suture of 6-0 Prolene. Controls of the fistula were now released and it was analyzed using a Doppler probe. Hemostasis was secured once optimal function was assured, the wound was irrigated with antibiotic containing solution and closed. Closure was done using interrupted 3-0 PDS for the subcutaneous tissues. The skin was closed, in either wound, using a continuous subcutaneous suture of 4-0 Monocryl which was reinforced with Steri-Strips over benzoin. I then left the operative field and returned with a stethoscope covered with a sterile Tegaderm dressing. This allowed external auscultation of the fistula. Auscultation was [satisfactory]. The procedure was concluded by applying a Kerlix dressing over the surgical site. DICTATING PHYSICIAN: DELVIN REICH M.D.
[2019-04-14 11:40] VITALS: BP 121/85
== END 2019-04-14 11:44 | disposition home or self-care (01) ==
LOC: OROUT 05:18
PROVIDERS: ATTEND Surgery
DX: I12.0 Hypertensive chronic kidney disease with stage 5 chronic kidney disease or end stage renal disease (principal); N18.6 End stage renal disease; Z99.2 Dependence on renal dialysis; D64.9 Anemia, unspecified; F17.210 Nicotine dependence, cigarettes, uncomplicated; Z79.899 Other long term (current) drug therapy; M10.9 Gout, unspecified
CPT/HCPCS: 36821; 36415 ×2; 84132; 85027; 80048; 94640; 01844; J2250; J3490 ×3; J3010; J1644; J3370; J2704; 1844

== ENCOUNTER 2019-05-13 00:14 | Emergency (ER) | payer OTHER ==
[2019-05-13] MEDS ORDERED: ACETAMINOPHEN 325 MG TABLET PO ONE (06:45)
--- NOTE | 2019-05-13 07:22 | RADIOLOGY REPORT (SQ) ---
EXAM: X-ray shoulder two or more views CLINICAL DATA: 48-year-old male with left anterior shoulder tenderness status post fall on stairs TECHNICAL DATA: Three x-ray views of the left shoulder were performed on 05/13/2019 at 7:02 AM. COMPARISONS: None FINDINGS: There is no evidence of fracture or dislocation. There is no significant arthritis or degenerative change. No focal lytic or sclerotic bone lesions are seen. There is questionable cortical irregularity along the medial aspect of the mid shaft of the left humerus on image #1. This may reflect overlying artifact. A fracture is considered less likely. Bone mineralization is normal. No focal soft tissue abnormalities are identified. IMPRESSION: No evidence of acute osseous injury involving the left shoulder. There is questionable cortical irregularity along the medial aspect of the mid shaft of the left humerus on image #1 which may be artifactual in nature. If there is clinical concern for a humerus fracture, a dedicated study of the left humerus is recommended..
[2019-05-13] MEDS ORDERED: OXYCODONE-ACETAMINOPHEN 5-325 MG TABLET PO ONE (08:40)
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
[2019-05-13 09:09] VITALS: BP 139/84
== END 2019-05-13 09:10 | disposition home or self-care (01) ==
LOC: ER 00:14
DX: S49.92XA Unspecified injury of left shoulder and upper arm, initial encounter (principal); M25.512 Pain in left shoulder; W10.9XXA Fall (on) (from) unspecified stairs and steps, initial encounter; Y93.89 Activity, other specified; I12.0 Hypertensive chronic kidney disease with stage 5 chronic kidney disease or end stage renal disease; N18.5 Chronic kidney disease, stage 5; Z99.2 Dependence on renal dialysis; F17.200 Nicotine dependence, unspecified, uncomplicated; Z87.81 Personal history of (healed) traumatic fracture
CPT/HCPCS: 99283

== ENCOUNTER → 2019-08-11 | Outpatient (CLI) | payer OTHER | LOC: OD 16:47 | PROVIDERS: ATTEND Internal Medicine | DX: N18.4 Chronic kidney disease, stage 4 (severe) (principal) | CPT/HCPCS: 36415; 86900; 86901 ==

== ENCOUNTER 2019-09-03 10:19 | Observation (INO) | payer OTHER ==
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
--- NOTE | 2019-09-03 10:53 | RADIOLOGY REPORT (SQ) ---
EXAM DESCRIPTION: CHEST 2 VIEWS COMPLETED DATE/TIME: 09/03/2019 10:45 am REASON FOR STUDY: chest pain COMPARISON: 03/23/2019 EXAM PARAMETERS: NUMBER OF VIEWS: two views TECHNIQUE: Digital Frontal and Lateral radiographic views of the chest acquired. RADIATION DOSE: NA LIMITATIONS: none FINDINGS: LUNGS AND PLEURA: No opacities, masses or pneumothorax. No pleural effusion. MEDIASTINUM AND HILAR STRUCTURES: No masses or contour abnormalities. HEART AND VASCULAR STRUCTURES: Heart normal size. No evidence for failure. BONES: No acute findings. HARDWARE: None in the chest. OTHER: No other significant finding. IMPRESSION: NO ACUTE RADIOGRAPHIC FINDING IN THE CHEST. TECHNICAL DOCUMENTATION: JOB ID: [id number]- All Rights Reserved Reading location - IP/workstation name: [email or web address]
[2019-09-03 11:16] LABS: ABSOLUTE BASOPHILS # (AUTO) 0.1 10^3/uL (0.0-0.2); ABSOLUTE EOSINOPHILS # (AUTO) 0.1 10^3/uL (0.0-0.6); ABSOLUTE LYMPHOCYTES (AUTO) 1.4 10^3/uL (0.5-4.7); ABSOLUTE MONOCYTES (AUTO) 0.7 10^3/uL (0.1-1.4); ABSOLUTE NEUT (AUTO) 6.3 10^3/uL (1.7-8.2); BASOPHILS % (AUTO) 0.7 % (0-2); EOSINOPHILS % (AUTO) 1.6 % (0-6); HEMOGLOBIN 11.8 g/dL (13.5-17.0); LYMPHOCYTES % (AUTO) 15.9 % (13-45); MEAN CORPUSCULAR HGB CONC 33.9 g/dL (32.0-36.0); MEAN CORPUSCULAR VOLUME 95 fl (80-97); MONOCYTES % (AUTO) 8.4 % (3-13); PLATELET COUNT 235 10^3/uL (150-450); RED CELL DISTRIBUTION WIDTH 15.6 % (11.5-14.0); SEGMENTED NEUTROPHILS % (AUTO) 73.4 % (42-78); TOTAL CELLS COUNTED % (AUTO) 100 %; WHITE BLOOD COUNT 8.5 10^3/uL (4.0-10.5)
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
[2019-09-03 12:51] LABS: ALBUMIN 4.3 g/dL (3.5-5.0); ALKALINE PHOSPHATASE 102 U/L (38-126); ANION GAP 13 (5-19); ASPARTATE AMINO TRANSFERASE 23 U/L (17-59); BILIRUBIN,DIRECT 0.3 mg/dL (0.0-0.4); BILIRUBIN,TOTAL 0.4 mg/dL (0.2-1.3); BLOOD UREA NITROGEN 56 mg/dL (7-20); CALCIUM 9.3 mg/dL (8.4-10.2); CARBON DIOXIDE 26 mmol/L (22-30); CHLORIDE 99 mmol/L (98-107); GLUCOSE 96 mg/dL (75-110); POTASSIUM 4.6 mmol/L (3.6-5.0); TOTAL PROTEIN 7.4 g/dL (6.3-8.2)
[2019-09-03] MEDS ORDERED: TEMAZEPAM 7.5 MG CAPSULE PO PRN (14:39)
[2019-09-03] MEDS ORDERED: PROMETHAZINE HCL INJ 25 MG/1 ML VIAL IV PRN (14:39)
[2019-09-03] MEDS ORDERED: OXYCODONE-ACETAMINOPHEN 5-325 MG TABLET PO PRN (14:39)
[2019-09-03] MEDS ORDERED: IPRATROPIUM/ALBUTEROL 0.5-2.5 MG/3 ML AMPUL NEB PRN (14:39)
[2019-09-03] MEDS ORDERED: ONDANSETRON HCL INJ/PF 4 MG/2 ML SDV IV PRN (14:39)
[2019-09-03] MEDS ORDERED: ACETAMINOPHEN 325 MG TABLET PO PRN (14:39)
[2019-09-03] MEDS ORDERED: GABAPENTIN 100 MG CAPSULE PO SCH (15:00)
[2019-09-03] MEDS: ASPIRIN 81 MG TABLET, CHEWABLE PO SCH (16:04)
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
[2019-09-03] MEDS: DOCUSATE SODIUM 100 MG/10 ML UDC PO SCH (18:56)
--- NOTE | 2019-09-03 20:15 | EKG REPORT ---
SEVERITY:- NORMAL ECG - SINUS RHYTHM : Confirmed by: Danna Riley MD 03-Sep-2019 20:14:23
[2019-09-03] MEDS: HEPARIN SOD (PORCINE) 5,000 UNIT/ML 1 ML VIAL SUBCUT SCH (21:40)
[2019-09-03] MEDS: FAMOTIDINE 20 MG TABLET PO SCH (21:40)
[2019-09-04] MEDS ORDERED: NORMAL SALINE 1000 ML 1,000 ML IV PRN (05:00)
[2019-09-04 05:17] LABS: HEMATOCRIT 31.9 % (37.9-51.0); HEMOGLOBIN 11.1 g/dL (13.5-17.0); MEAN CORPUSCULAR HEMOGLOBIN 32.7 pg (27.0-33.4); MEAN CORPUSCULAR HGB CONC 34.7 g/dL (32.0-36.0); MEAN CORPUSCULAR VOLUME 94 fl (80-97); PLATELET COUNT 187 10^3/uL (150-450); RED BLOOD COUNT 3.39 10^6/uL (4.35-5.55); RED CELL DISTRIBUTION WIDTH 15.6 % (11.5-14.0); WHITE BLOOD COUNT 6.5 10^3/uL (4.0-10.5)
[2019-09-04 05:43] LABS: ALBUMIN 3.8 g/dL (3.5-5.0); ALKALINE PHOSPHATASE 65 U/L (38-126); ANION GAP 14 (5-19); ASPARTATE AMINO TRANSFERASE 19 U/L (17-59); BILIRUBIN,DIRECT 0.2 mg/dL (0.0-0.4); BILIRUBIN,TOTAL 0.6 mg/dL (0.2-1.3); BLOOD UREA NITROGEN 65 mg/dL (7-20); CALCIUM 9.2 mg/dL (8.4-10.2); CARBON DIOXIDE 21 mmol/L (22-30); CHLORIDE 105 mmol/L (98-107); GLUCOSE 90 mg/dL (75-110); POTASSIUM 4.6 mmol/L (3.6-5.0); TOTAL PROTEIN 6.8 g/dL (6.3-8.2)
[2019-09-04] MEDS: HEPARIN SOD (PORCINE) 5,000 UNIT/ML 1 ML VIAL SUBCUT SCH ×2 (06:18→15:44)
[2019-09-04 07:18] LABS: CHOLESTEROL 124.73 mg/dL (0-200); TRIGLYCERIDES 226 mg/dL (<150)
[2019-09-04 07:29] LABS: DIRECT LDL 67 mg/dL (<100)
[2019-09-04 07:31] LABS: VLDL CHOLESTEROL 45.2 mg/dL (10-31)
[2019-09-04] MEDS ORDERED: (PENDING PHARMACY ID) (Calcitriol [Rocaltrol 0.5 Mcg Capsule] 0.5 MCG) PO SCH (10:00)
[2019-09-04] MEDS ORDERED: METOPROLOL SUCCINATE 50 MG TAB.SR.24H PO SCH (10:00)
[2019-09-04] MEDS ORDERED: AMLODIPINE BESYLATE 10 MG TABLET PO SCH (10:00)
[2019-09-04] MEDS ORDERED: ALLOPURINOL 100 MG TABLET PO SCH (10:00)
[2019-09-04] MEDS ORDERED: FUROSEMIDE 40 MG TABLET PO SCH (10:00)
[2019-09-04] MEDS ORDERED: [UNRECOGNIZED DRUG - REMARK] PO SCH (10:00)
[2019-09-04] MEDS ORDERED: VITAMIN B COMPLEX TABLET PO SCH (10:00)
[2019-09-04] MEDS ORDERED: CALCITRIOL 0.25 MCG CAPSULE PO SCH (10:00)
[2019-09-04] MEDS: DOCUSATE SODIUM 100 MG/10 ML UDC PO SCH (10:09)
[2019-09-04] MEDS: ASPIRIN 81 MG TABLET, CHEWABLE PO SCH (10:09)
[2019-09-04] MEDS: FAMOTIDINE 20 MG TABLET PO SCH (10:09)
[2019-09-04] MEDS ORDERED: REGADENOSON INJ 0.4 MG/5 ML DISP.SYRIN IV ONE (15:55)
[2019-09-04 17:13] VITALS: BP 133/89
--- NOTE | 2019-09-04 18:12 | PDOC CONSULTATION ---
Consultation Consult Date: 09/04/19 Provider Consulted: NICK VAUGHN Consult reason:: I was asked to see the patient to supervise dialysis while he is here in the hospital. History of Present Illness Admission Date/PCP: 09/03/19 13:35 BRIT ALLEN PA-C History of Present Illness: NOE FERRARI is a 48 year old gentleman known to me with history of ESRD on maintenance hemodialysis on MWF, hypertension, and gout who was admitted yesterday because of chest pains. Patient relates that while he was at work yesterday morning at around 8:30 AM he started to have this left-sided chest pain at rest. He describes it as sharp, with radiation to his left arm described as feeling fatigue, associated with shortness of breath, and lightheadedness. Intensity at that time was 3/5. He then presented in the emergency room and the chest pain recurred on and off while he was there every few minutes at the time lasting for about 10 minutes or so. He said the chest pain finally resolved around 3:30 PM yesterday. He was admitted for observation. Today he underwent a Cardiolite stress testing of which the results are still pending. Today I am seeing him during dialysis treatment. He is chest pain-free. He does not really have any complaints at this time. He denies any shortness of br eath. He is tolerating dialysis without any problems. Past Medical History Cardiac Medical History: Reports: Hypertension-primary Neurological Medical History: Reports: Seizures - LAST ONE 38YRS POST ACCIDENT A CHILD Renal/ Medical History: Reports: End Stage Renal Disease Musculoskeltal Medical History: Reports: Arthritis - MARVIN KNEES/HANDS, Gout Traumatic Medical History: Reports: Traumatic Brain Injury Hematology Medical History: Reports Anemia of Chronic Kidney Disease Past Surgical History Past Surgical History: Reports: Dialysis Access Surgery AVF, Orthopedic Surgery - Knee surgeries to left and right knee Social History Information Source: Patient Smoking Status: Former Smoker Cigarettes Packs Per Day: 0.5 Electronic Cigarette use?: No Number of Years Smokin Last Time Smoked: 07/21/19 Frequency of Alcohol Use: None Hx Recreational Drug Use: No Drugs: None Hx Prescription Drug Abuse: No - Advance Directive Resuscitation Status: Full Code Family History Family History: Other - Gout Parental Family History Reviewed: Yes Children Family History Reviewed: Yes Sibling(s) Family History Reviewed.: Yes Medication/Allergy Home Medications: Allopurinol [Zyloprim 100 mg Tablet] 100 mg PO DAILY 09/03/19 Amlodipine Besylate [Norvasc 10 mg Tablet] 10 mg PO DAILY 09/03/19 Calcitriol [Rocaltrol 0.5 mcg Capsule] 0.5 mcg PO DAILY 09/03/19 Furosemide [Lasix 40 mg Tablet] 40 mg PO DAILY 09/03/19 Gabapentin [Neurontin 100 mg Capsule] 100 mg PO .ACDIALYSIS MO WE FR 09/03/19 Metoprolol Succinate [Toprol Xl 50 mg Tab.sr] 50 mg PO DAILY 09/03/19 Vit B Comp No.3/Folic/C/Biotin [[facility] Tablet] 1 tab PO DAILY 09/03/19 Aspirin [Adult Aspirin Regimen] 81 mg PO DAILY 30 Days #30 tablet. 09/04/19 Rosuvastatin Calcium [Crestor 20 mg Tablet] 20 mg PO QHS 30 Days #30 tablet 09/04/19 Allergies/Adverse Reactions: No Known Allergies Allergy (Verified 09/03/19 10:32) Review of Systems All systems: reviewed and no additional remarkable complaints except as stated Review of Systems: Constitutional: ABSENT: chills, fatigue, fever(s), headache(s), weight gain, weight loss Eyes: ABSENT: visual disturbances Ears: ABSENT: hearing changes Cardiovascular: ABSENT: Dyspnea on exertion, edema, orthropnea, palpitations; admits chest pains associated with shortness of breath on presentation Respiratory: ABSENT: cough, dyspnea, hemoptysis Gastrointestinal: ABSENT: abdominal pain, constipation, diarrhea, hematemesis, hematochezia, nausea, vomiting Genitourinary: ABSENT: dysuria, hematuria Musculoskeletal: ABSENT: joint swelling Integumentary: ABSENT: rash, wounds Neurological: ABSENT: abnormal gait, abnormal speech, confusion, dizziness, focal weakness, numbness, syncope; admits lightheadedness on presentation Psychiatric: ABSENT: anxiety, depression Endocrine: ABSENT: cold intolerance, heat intolerance, polydipsia, polyuria Hematologic/Lymphatic: ABSENT: easy bleeding, easy bruising, lymphadenopathy Physical Exam Vital Signs: Temp Pulse Resp BP Pulse Ox 97.9 F 93 16 126/81 H 95 09/04/19 11:22 09/04/19 11:47 09/04/19 11:47 09/04/19 11:22 09/04/19 11:47 Intake & Output 09/03/19 09/04/19 09/05/19 06:59 06:59 06:59 Intake Total 240 474 Balance 240 474 Weight 93.7 kg Vitals during dialysis: Blood pressure 147/80, heart rate of 100, blood flow rate of 450 ml/minute and dialysate flow rate of 800 mL/min. Exam: General appearance: No acute distress, cooperative, well-developed, well- nourished Head exam: PRESENT: atraumatic, normocephalic Eye exam: PRESENT: Conjunctiva [place], EOMI, PERRLA. ABSENT: conjunctival injection, scleral icterus Mouth exam: PRESENT: moist, neck supple, tongue midline Neck exam: PRESENT: full ROM. ABSENT: carotid bruit, JVD, lymphadenopathy, thyromegaly Respiratory exam: PRESENT: clear to auscultation bilaterally. ABSENT: rales, rhonchi, stridor, wheezes Cardiovascular exam: PRESENT: RRR, +S1, +S2. ABSENT: systolic murmur Pulses: PRESENT: normal radial pulses, normal dorsalis pedis pulses GI/Abdominal exam: PRESENT: normal bowel sounds, soft. ABSENT: guarding, mass, tenderness Rectal exam: Deferred Extremities exam: PRESENT: full ROM. ABSENT: calf tenderness, pedal edema Musculoskeletal: PRESENT: full ROM. ABSENT: deformity Neurological exam: PRESENT: alert, Awake, Oriented to person, Oriented to place, Oriented to time, reflexes normal, CN II-XII grossly intact. ABSENT: motor sensory deficit Psychiatric exam: PRESENT: appropriate affect, normal mood. ABSENT: homicidal ideation, suicidal ideation Skin exam: PRESENT: intact, dry, warm. ABSENT: rash Results Laboratory Results: 09/04/19 04:55 09/04/19 04:55 09/04/19 09/04/19 09/04/19 04:55 04:55 04:55 WBC 6.5 RBC 3.39 L Hgb 11.1 L Hct 31.9 L MCV 94 MCH 32.7 MCHC 34.7 RDW 15.6 H Plt Count 187 Sodium 140.3 Potassium 4.6 Chloride 105 Carbon Dioxide 21 L Anion Gap 14 BUN 65 H Creatinine 8.15 H Est GFR ( Amer) 9 L Glucose 90 Calcium 9.2 Magnesium 2.1 Total Bilirubin 0.6 AST 19 Alkaline Phosphatase 65 Total Protein 6.8 Albumin 3.8 Triglycerides 226 H Cholesterol 124.73 LDL Cholesterol Direct 67 VLDL Cholesterol 45.2 H HDL Cholesterol 25 L 09/03/19 09/03/19 09/04/19 10:56 17:58 00:32 Troponin I < 0.012 < 0.012 < 0.012 Impressions: Chest X-Ray 09/03/19 10:33 IMPRESSION: NO ACUTE RADIOGRAPHIC FINDING IN THE CHEST. Assessment & Plan - Diagnosis (1) Atypical chest pain Is this a current diagnosis for this admission?: Yes Plan: Patient underwent Cardiolite stress test today, results pending. (2) End-stage renal disease on hemodialysis Is this a current diagnosis for this admission?: Yes Plan: We will do dialysis today for 3 hours, using the patient's AV fistula, with 2 potassium bath, blood flow rate of 450 mL per minute, dialysate flow rate of 800 mL per minute, ultrafiltration 1.5 to 2 L as tolerated, no heparin and no Procrit today. Patient is being monitored throughout dialysis treatment. (3) HTN (hypertension) Qualifiers: Hypertension type: essential hypertension Qualified Code(s): I10 - Essential (primary) hypertension Is this a current diagnosis for this admission?: Yes (4) Gout Is this a current diagnosis for this admission?: Yes - Notes Notes: Thank you very much for this consult. - Time Time Spent: 50 to 70 Minutes
[2019-09-04] MEDS ORDERED: ATORVASTATIN CALCIUM 40 MG TABLET PO SCH (22:00)
--- NOTE | 2019-09-06 17:17 | PDOC DISCHARGE SUMMARY ---
Impression - Admit/DC Date/PCP Admission Date/Primary Care Provider: 09/03/19 13:35 BRIT ALLEN PA-C Discharge Date: 09/04/19 - Discharge Diagnosis (1) Atypical chest pain Is this a current diagnosis for this admission?: Yes (2) HTN (hypertension) Is this a current diagnosis for this admission?: Yes (3) Former smoker Is this a current diagnosis for this admission?: Yes (4) Gout Is this a current diagnosis for this admission?: Yes (5) End-stage renal disease on hemodialysis Is this a current diagnosis for this admission?: Yes - Additional Information Resuscitation Status: Full Code Discharge Activity: Activity As Tolerated, Balance Activity w/Rest, Weigh Daily Referrals: ELISEO KELLEY MD [ACTIVE STAFF] - ELISE GONZALEZ MD [NO LOCAL MD] - 09/10/19 11:30 am Prescriptions: Aspirin [Adult Aspirin Regimen] 81 mg PO DAILY 30 Days #30 tablet. Rosuvastatin Calcium [Crestor 20 mg Tablet] 20 mg PO QHS 30 Days #30 tablet Home Medications: Allopurinol [Zyloprim 100 mg Tablet] 100 mg PO DAILY 09/03/19 Amlodipine Besylate [Norvasc 10 mg Tablet] 10 mg PO DAILY 09/03/19 Calcitriol [Rocaltrol 0.5 mcg Capsule] 0.5 mcg PO DAILY 09/03/19 Furosemide [Lasix 40 mg Tablet] 40 mg PO DAILY 09/03/19 Gabapentin [Neurontin 100 mg Capsule] 100 mg PO .ACDIALYSIS MO WE FR 09/03/19 Metoprolol Succinate [Toprol Xl 50 mg Tab.sr] 50 mg PO DAILY 09/03/19 Vit B Comp No.3/Folic/C/Biotin [[facility] Tablet] 1 tab PO DAILY 09/03/19 Aspirin [Adult Aspirin Regimen] 81 mg PO DAILY 30 Days #30 tablet. 09/04/19 Rosuvastatin Calcium [Crestor 20 mg Tablet] 20 mg PO QHS 30 Days #30 tablet 09/04/19 History of Present Illiness History of Present Illness: NOE FERRARI is a 48 year old male past medical history of recently ESRD on HD MWF right elbow fistula, hypertension, gout, venous insufficiency, former smoker, tenting to ED complaining of acute onset chest pain. Chest pain is started at work, left-sided, sharp (felt like being stabbed in the chest), radiating to his back left arm, for about 45 minutes, associated with nausea, shortness of breath, lightheadedness, relieved with rest, no exacerbating factor identified, recurred while trying to get to ED, denies any history of CAD, PND, orthopnea, extremity swelling, fever, vomiting, abdominal pain, diarrhea, or any urinary symptoms. Given his history of end-stage renal disease, hypertension, and history of smoking hospitalist consulted for admission for further risk stratification. Hospital Course Hospital Course: (1) Atypical chest pain Resolved. Atypical chest pain. Likely musculoskeletal versus anxiety. troponins <0.012 x 3 Patient is stating that he has had a stressful day today. HEART Score 2 Risk factors ESRD, hypertension, smoking family history of CAD. Admited to telemetry, antiplatelets, statins, trend troponins, nuclear stress test for further risk stratification. Stress test negative for any acute changes. Due to high risk history pt was asked to follow up with Dr Pham as outpatient. P t voiced understanding. (2) HTN (hypertension) Normotensive. Euvolemic. Restarted home meds. Adjust meds as needed. Outpatient PCP follow-up. (3) Former smoker Quit 5 months ago. Counseled on abstinence. NicoDerm patch will be provided if needed. (4) Gout Not an acute flare. Restart home meds. (5) End-stage renal disease on hemodialysis On HD MWF. Right upper extremity fistula. Still makes urine. Appears euvolemic. Denies any uremic symptoms. Monitor volume status and electrolytes replace as needed. Consulted nephrology. HD while in patient. Physical Exam Vital Signs: Temp Pulse Resp BP Pulse Ox 97.9 F 93 16 133/89 H 95 09/04/19 17:12 09/04/19 17:12 09/04/19 17:12 09/04/19 17:12 09/04/19 17:12 Intake & Output 09/05/19 09/06/19 09/07/19 06:59 06:59 06:59 Intake Total 474 Output Total 1400 Balance -926 General appearance: PRESENT: no acute distress, well-developed, well-nourished Head exam: PRESENT: atraumatic, normocephalic Eye exam: PRESENT: conjunctiva pink, EOMI, PERRLA. ABSENT: scleral icterus Ear exam: PRESENT: normal external ear exam Mouth exam: PRESENT: moist, tongue midline Neck exam: ABSENT: carotid bruit, JVD, lymphadenopathy, thyromegaly Respiratory exam: PRESENT: clear to auscultation caesar. ABSENT: rales, rhonchi, wheezes Cardiovascular exam: PRESENT: RRR. ABSENT: diastolic murmur, rubs, systolic murmur Pulses: PRESENT: normal dorsalis pedis pul Vascular exam: PRESENT: normal capillary refill GI/Abdominal exam: PRESENT: normal bowel sounds, soft. ABSENT: distended, guarding, mass, organolmegaly, rebound, tenderness Rectal exam: PRESENT: deferred Extremities exam: PRESENT: full ROM. ABSENT: calf tenderness, clubbing, pedal edema Neurological exam: PRESENT: alert, awake, oriented to person, oriented to place, oriented to time, oriented to situation, CN II-XII grossly intact. ABSENT: motor sensory deficit Psychiatric exam: PRESENT: appropriate affect, normal mood. ABSENT: homicidal ideation, suicidal ideation Skin exam: PRESENT: dry, intact, warm. ABSENT: cyanosis, rash Results Laboratory Results: WBC 6.5 10^3/uL (4.0-10.5) 09/04/19 04:55 RBC 3.39 10^6/uL (4.35-5.55) L 09/04/19 04:55 Hgb 11.1 g/dL (13.5-17.0) L 09/04/19 04:55 Hct 31.9 % (37.9-51.0) L 09/04/19 04:55 MCV 94 fl (80-97) 09/04/19 04:55 MCH 32.7 pg (27.0-33.4) 09/04/19 04:55 MCHC 34.7 g/dL (32.0-36.0) 09/04/19 04:55 RDW 15.6 % (11.5-14.0) H 09/04/19 04:55 Plt Count 187 10^3/uL (150-450) 09/04/19 04:55 Lymph % (Auto) 15.9 % (13-45) 09/03/19 10:56 [place] % (Auto) 8.4 % (3-13) 09/03/19 10:56 Eos % (Auto) 1.6 % (0-6) 09/03/19 10:56 Baso % (Auto) 0.7 % (0-2) 09/03/19 10:56 Absolute Neuts (auto) 6.3 10^3/uL (1.7-8.2) 09/03/19 10:56 Absolute Lymphs (auto) 1.4 10^3/uL (0.5-4.7) 09/03/19 10:56 Absolute Monos (auto) 0.7 10^3/uL (0.1-1.4) 09/03/19 10:56 Absolute Eos (auto) 0.1 10^3/uL (0.0-0.6) 09/03/19 10:56 Absolute Basos (auto) 0.1 10^3/uL (0.0-0.2) 09/03/19 10:56 Seg Neutrophils % 73.4 % (42-78) 09/03/19 10:56 Sodium 140.3 mmol/L (137-145) 09/04/19 04:55 Potassium 4.6 mmol/L (3.6-5.0) 09/04/19 04:55 Chloride 105 mmol/L (98-107) 09/04/19 04:55 Carbon Dioxide 21 mmol/L (22-30) L 09/04/19 04:55 Anion Gap 14 (5-19) 09/04/19 04:55 BUN 65 mg/dL (7-20) H 09/04/19 04:55 Creatinine 8.15 mg/dL (0.52-1.25) H 09/04/19 04:55 Est GFR ( Amer) 9 (>60) L 09/04/19 04:55 Est GFR (Non-Af Amer) Cancelled 09/03/19 10:56 Est GFR (MDRD) Non-Af 7 (>60) L 09/04/19 04:55 Glucose 90 mg/dL (75-110) 09/04/19 04:55 Hemoglobin A1c % 5.6 % (4.7-6.0) 09/04/19 04:55 Calcium 9.2 mg/dL (8.4-10.2) 09/04/19 04:55 Magnesium 2.1 mg/dL (1.6-2.3) 09/04/19 04:55 Total Bilirubin 0.6 mg/dL (0.2-1.3) 09/04/19 04:55 Direct Bilirubin 0.2 mg/dL (0.0-0.4) 09/04/19 04:55 Neonat Total Bilirubin Not Reportable 09/04/19 04:55 Neonat Direct Bilirubin Not Reportable 09/04/19 04:55 Neonat Indirect Bili Not Reportable 09/04/19 04:55 AST 19 U/L (17-59) 09/04/19 04:55 ALT 18 U/L (<50) 09/04/19 04:55 Alkaline Phosphatase 65 U/L (38-126) 09/04/19 04:55 Troponin I < 0.012 ng/mL 09/04/19 00:32 Total Protein 6.8 g/dL (6.3-8.2) 09/04/19 04:55 Albumin 3.8 g/dL (3.5-5.0) 09/04/19 04:55 Triglycerides 226 mg/dL (<150) H 09/04/19 04:55 Cholesterol 124.73 mg/dL (0-200) 09/04/19 04:55 LDL Cholesterol Direct 67 mg/dL (<100) 09/04/19 04:55 VLDL Cholesterol 45.2 mg/dL (10-31) H 09/04/19 04:55 HDL Cholesterol 25 mg/dL (>40) L 09/04/19 04:55 EGFR Cancelled 09/03/19 10:56 09/03/19 09/03/19 09/04/19 10:56 17:58 00:32 Troponin I < 0.012 < 0.012 < 0.012 Impressions: Chest X-Ray 09/03/19 10:33 IMPRESSION: NO ACUTE RADIOGRAPHIC FINDING IN THE CHEST. Stroke Is this a Stroke Patient?: No Acute Heart Failure - Is this a Heart Failure Patient?: No
--- NOTE | 2019-09-06 23:10 | DRAGON STRESS TEST REPORT ---
Intravenous Lexiscan Cardiolite stress test using single photon emmision computerized tomography. Date of procedure: 09/04/2019. Ordering Provider:. Patient's status In Patient. Indication: Chest pain. Coronary risk factors: Age, hypertension, and family history of coronary artery disease. Resting EKG: Sinus Rhythm. Within Normal Limit Stress EKG: No changes of ischemia. The patient had no chest pain or discomfort and there were no arrhythmias seen. Reason for termination: Protocol. Conclusions: Normal EKG and hemodynamic response to IV Lexiscan. Nuclear data: At rest the patient was given 14.33 millicuries of technetium 99m sestamibi injected intravenously. As per protocol rest non gated SPECT images were obtained. Subsequently the patient was given intravenous Lexiscan at a dose of 0.4 mg in 5 mL intravenously, followed by flush with normal saline. Subsequently the stress dose of 43.5 millicuries of technetium 99m sestamibi was injected intravenously. As per protocol stress gated images were obtained. Nuclear interpretation: Review of images showed that all segments of the myocardium had normal perfusion at rest, and normal perfusion post stress with IV Lexiscan. All segments of the myocardium had normal motion, contraction, and thickening by gated study. T. I D. ratio was normal at 1.04. There is no transient ischemic dilatation of the left ventricle. Computer read rest, and stress left ventricular ejection fraction were 59 %, and 54 %, respectively. Visually both the stress and rest ejection fractions were normal, and greater than 55%. Conclusion: 1. There is no scintigraphic evidence of Lexiscan induced myocardial ischemia. 2. There is no scintigraphic evidence of myocardial infarction/scar. Recommendations: Aggressive risk factor modification, and treating the underlying co- morbidities. [facility]
== END 2019-09-04 17:20 | disposition home or self-care (01) ==
LOC: ER 10:19 → EH 13:35 → 3W 17:26
PROVIDERS: ADMIT Internal Medicine; ATTEND Internal Medicine
PROC: 5A1D70Z Performance of Urinary Filtration, Intermittent, Less than 6 Hours Per Day (ICD-10-PCS; principal; 2019-09-04)
DX: R07.89 Other chest pain (principal); I12.0 Hypertensive chronic kidney disease with stage 5 chronic kidney disease or end stage renal disease; N18.6 End stage renal disease; R53.83 Other fatigue; R06.02 Shortness of breath; R42 Dizziness and giddiness; R11.0 Nausea; M10.9 Gout, unspecified; Z99.2 Dependence on renal dialysis; Z87.891 Personal history of nicotine dependence; Z79.899 Other long term (current) drug therapy; Z82.49 Family history of ischemic heart disease and other diseases of the circulatory system; Z87.820 Personal history of traumatic brain injury
CPT/HCPCS: 93005; 99285; 36415 ×2; 83735; 85025; 85027; 80053 ×2; 84484 ×2; 83036; 80061; 93017; 71046; 78452; 93010; G0378 ×3; A9500; J2785; J1644 ×2; Q9969; J3490; G0257